=== PATIENT | female | born 1960 | race Caucasian/White ===

== ENCOUNTER 2016-07-10 00:02 | Inpatient (IN) | payer OTHER ==
[2016-07-11] MEDS ORDERED: Ondansetron INJ* 2 MG/ML VIAL IV PRN
[2016-07-11] MEDS ORDERED: Acetaminophen TAB* 325 MG PO PRN
[2016-07-11] MEDS ORDERED: HYDROmorphone* 1 MG/ML 1 ML SYR IV SLOW PU PRN (00:02)
[2016-07-11] MEDS: NS 0.9% 1000 ML* 1,000 ML IV SCH ×3 (00:45→21:16)
[2016-07-11 01:12] LABS: Hematocrit 40 % (35-47); Hemoglobin 13.2 g/dl (12.0-16.0); Mean Corpuscular HGB Conc 34 g/dl (31-36); Mean Corpuscular Hemoglobin 30 pg (27-31); Mean Corpuscular Volume 91 fL (80-97); Mean Platelet Volume 8 um3 (7.4-10.4); Red Blood Count 4.36 10^6/ul (4.0-5.4); Red Cell Distribution Width 13 % (10.5-15); White Blood Count 5.8 10^3/ul (3.5-10.8)
[2016-07-11 01:28] LABS: EGFR African American 76.7 (>60); EGFR Non-African American 59.6 (>60)
[2016-07-11] MEDS: Zolpidem TAB* 10 MG PO PRN (02:26)
[2016-07-11 02:42] LABS: Albumin 4.2 g/dL (3.2-5.2); Calcium 9.2 mg/dL (8.6-10.3); Globulin 3.1 g/dL (2-4); Potassium 3.7 mmol/L (3.5-5.0); Total Bilirubin 0.6 mg/dL (0.2-1.0); Total Protein 7.3 g/dL (6.4-8.9)
[2016-07-11] MEDS: Heparin VIAL(*) 5000 UNITS/ML VIAL (FIVE THOUSAND) SUBCUT SCH ×3 (06:24→21:47)
--- NOTE | 2016-07-11 08:10 | RAD ---
INDICATION: Small bowel obstruction. COMPARISON: Comparison is made with a prior KUB series from January 18, 2016. TECHNIQUE: Frontal supine films of the abdomen were obtained. FINDINGS: The small bowel and colon appear nondistended. Note is made of debris within diverticuli within the colon. There are couple surgical clips which project over the abdomen on the right side. IMPRESSION: NO EVIDENCE FOR OBSTRUCTION.
[2016-07-11] MEDS: Pantoprazole IV* 40 MG IV SCH (08:18)
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
--- NOTE | 2016-07-11 12:59 | RAD ---
HISTORY: Right upper quadrant pain COMPARISONS: May 03, 2008 TECHNIQUE: Multiple transverse and longitudinal ultrasound images were obtained of the right upper quadrant of the abdomen using grayscale and color Doppler imaging. FINDINGS: LIVER: There is a simple cyst of left lobe of liver measuring 0.6 cm in size. There is normal hepatopedal flow of the portal vein on Doppler imaging. BILIARY TREE: There is no intrahepatic or extrahepatic biliary dilatation. The common duct measures 0.4 cm. GALLBLADDER: There are multiple echogenic and shadowing lesions consistent with gallbladder wall polyps. These measure up to 0.3 cm in size. These are stable from the previous examination. There is no sonographic Tran's sign, gallbladder thickening, or pericholecystic fluid. PANCREAS: The head of the pancreas is unremarkable. The tail of the pancreas is not well visualized secondary to overlying bowel gas. RIGHT KIDNEY: The right kidney is normal in shape, size, contour, and echogenicity. There is no hydronephrosis or nephrolithiasis. The right kidney measures 9.4 x 3.1 x 3.8 cm. AORTA AND IVC: The aorta and IVC are unremarkable. FLUID: There are no pleural effusions. There is no free fluid within the hepatorenal recess. OTHER FINDINGS: None. IMPRESSION: 1. STABLE GALLBLADDER WALL POLYPS. 2. NO ACUTE SONOGRAPHIC PATHOLOGY OF THE VISUALIZED PORTION OF THE ABDOMEN
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
[2016-07-12] MEDS: Zolpidem TAB* 10 MG PO PRN ×2 (00:26→21:58)
[2016-07-12] MEDS: Heparin VIAL(*) 5000 UNITS/ML VIAL (FIVE THOUSAND) SUBCUT SCH ×3 (06:01→21:59)
[2016-07-12] MEDS: NS 0.9% 1000 ML* 1,000 ML IV SCH (06:19)
[2016-07-12] MEDS: Pantoprazole IV* 40 MG IV SCH (09:35)
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
[2016-07-13 05:57] LABS: BUN/Creatinine Ratio 8.3 (8-20); EGFR African American 90.5 (>60); EGFR Non-African American 70.4 (>60); Potassium 3.4 mmol/L (3.5-5.0)
[2016-07-13] MEDS: Heparin VIAL(*) 5000 UNITS/ML VIAL (FIVE THOUSAND) SUBCUT SCH ×2 (06:18→14:42)
[2016-07-13] MEDS: Pantoprazole IV* 40 MG IV SCH (08:22)
[2016-07-13] MEDS ORDERED: NS 0.9% w/ 40 Meq KCL 1000 ML* 1,000 ML IV SCH (14:00)
--- NOTE | 2016-07-13 15:33 | RAD ---
Indication: Partial small bowel obstruction for follow-up. Flat and upright views of the abdomen demonstrates no free air. Bowel gas pattern is otherwise unremarkable. When compared to previous exam of July 11, 2016 no significant change is noted. IMPRESSION: Bowel gas pattern is unremarkable. No definite evidence of small bowel obstruction is noted.
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
[2016-07-13 20:03] VITALS: BP 143/83
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
== END 2016-07-13 21:10 | disposition short-term general hospital (02) | DRG 247 ==
LOC: SSU 00:02 → OBSVTOIN 07-11 00:02
PROVIDERS: ADMIT Internal Medicine; ATTEND Internal Medicine
DX: K56.60 Unspecified intestinal obstruction (principal); K21.9 Gastro-esophageal reflux disease without esophagitis; G47.00 Insomnia, unspecified; K82.4 Cholesterolosis of gallbladder; Z91.048 Other nonmedicinal substance allergy status; Z88.4 Allergy status to anesthetic agent
CPT/HCPCS: 36415; 74000; 76705; 80048; 80053; 85025; 85610; 85730; A9270-GY; J1170; J1644; J2405

== ENCOUNTER 2016-08-02 23:56 | Observation (INO) | payer OTHER ==
[2016-08-03] MEDS ORDERED: Ondansetron INJ* 2 MG/ML VIAL IV PRN (00:04)
[2016-08-03] MEDS ORDERED: HYDROmorphone* 1 MG/ML 1 ML SYR IV SLOW PU PRN (00:05)
[2016-08-03] MEDS: NS 0.9% 1000 ML* 1,000 ML IV SCH ×3 (00:20→17:26)
[2016-08-03 01:06] LABS: Hematocrit 36 % (35-47); Hemoglobin 12.2 g/dl (12.0-16.0); Mean Corpuscular HGB Conc 34 g/dl (31-36); Mean Corpuscular Hemoglobin 30 pg (27-31); Mean Corpuscular Volume 89 fL (80-97); Mean Platelet Volume 7 um3 (7.4-10.4); Red Blood Count 4.03 10^6/ul (4.0-5.4); Red Cell Distribution Width 14 % (10.5-15); White Blood Count 14.7 10^3/ul (3.5-10.8)
[2016-08-03 01:28] LABS: BUN/Creatinine Ratio 22.9 (8-20); Calcium 9.4 mg/dL (8.6-10.3); EGFR African American 111.7 (>60); EGFR Non-African American 86.9 (>60); Globulin 3.5 g/dL (2-4); Potassium 3.8 mmol/L (3.5-5.0); Total Bilirubin 0.4 mg/dL (0.2-1.0); Total Protein 7.5 g/dL (6.4-8.9)
[2016-08-03] MEDS: Heparin VIAL(*) 5000 UNITS/ML VIAL (FIVE THOUSAND) SUBCUT SCH ×3 (05:23→21:36)
--- NOTE | 2016-08-03 07:24 | RAD ---
INDICATION: Small bowel obstruction. COMPARISON: Comparison is made with a prior study from July 13, 2016. TECHNIQUE: Supine and upright views of the abdomen were obtained. FINDINGS: There is a paucity of bowel gas limiting the study. The small bowel and colon appear nondistended. There is a small air-fluid level within the stomach. No significant air-fluid levels are noted within the small bowel or colon. No free intraperitoneal air is seen. There is a surgical clip which projects in the right lower quadrant. IMPRESSION: NO EVIDENCE FOR OBSTRUCTION.
[2016-08-03] MEDS ORDERED: Omeprazole CAP* 20 MG PO SCH ×2 (07:30→21:00)
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
[2016-08-03] MEDS ORDERED: Melatonin (NF) ** ENTER STRENGTH IN LABEL DIRECTIONS PO PRN (16:48)
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
[2016-08-03] MEDS ORDERED: Zolpidem TAB* 10 MG PO PRN (17:22)
[2016-08-03] MEDS ORDERED: NS 0.9% 1000 ML* 1,000 ML IV SCH (17:30)
[2016-08-04] MEDS: Heparin VIAL(*) 5000 UNITS/ML VIAL (FIVE THOUSAND) SUBCUT SCH ×2 (06:02→14:00)
[2016-08-04 06:19] LABS: Hematocrit 32 % (35-47); Hemoglobin 11.1 g/dl (12.0-16.0); Mean Corpuscular HGB Conc 35 g/dl (31-36); Mean Corpuscular Hemoglobin 31 pg (27-31); Mean Corpuscular Volume 89 fL (80-97); Mean Platelet Volume 7 um3 (7.4-10.4); Red Blood Count 3.59 10^6/ul (4.0-5.4); Red Cell Distribution Width 14 % (10.5-15); White Blood Count 6.5 10^3/ul (3.5-10.8)
[2016-08-04] MEDS ORDERED: Lactulose* 15 ML UDC ONE (09:45)
[2016-08-04 11:57] VITALS: BP 126/82
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
== END 2016-08-04 14:05 | disposition home or self-care (01) ==
LOC: UNDOADMOB 23:56 → SSU 23:56 → OBSVTOIN 08-03 00:05 → INTOOBSV 08-03 00:05
PROVIDERS: ADMIT Internal Medicine; ATTEND Internal Medicine
DX: K56.60 Unspecified intestinal obstruction (principal); K21.9 Gastro-esophageal reflux disease without esophagitis; G47.00 Insomnia, unspecified; Z98.890 Other specified postprocedural states; Z88.8 Allergy status to other drugs, medicaments and biological substances; Z79.899 Other long term (current) drug therapy
CPT/HCPCS: 36415; 74020; 80053; 85025; 85610; 85730; 96361; 96372; 96374; 96375; A9270-GY; G0378; J1170; J1642; J1644; J2405

== ENCOUNTER 2017-01-03 17:12 | Emergency (ER) | payer BC, OTHER ==
[2017-01-03] MEDS ORDERED: Vancomycin(*) 1,000 MG in NS 0.9% 250 ML* 250 ML IVPB ONE (17:46)
[2017-01-03] MEDS ORDERED: Lidocaine 2% EPI 1:200000 MPF* 20 ML VIAL ONE (17:48)
[2017-01-03] MEDS ORDERED: Tetan/Diph/Pertus SYR(Tdap)* 0.5 ML SYR(BOOSTRIX) use SYR IM ONE (18:08)
[2017-01-03 18:13] LABS: Hematocrit 39 % (35-47); Hemoglobin 13.5 g/dl (12.0-16.0); Mean Corpuscular HGB Conc 34 g/dl (31-36); Mean Corpuscular Hemoglobin 30 pg (27-31); Mean Corpuscular Volume 86 fL (80-97); Mean Platelet Volume 8 um3 (7.4-10.4); Red Blood Count 4.56 10^6/ul (4.0-5.4); Red Cell Distribution Width 15 % (10.5-15)
[2017-01-03 18:31] LABS: Albumin 4.2 g/dL (3.2-5.2); BUN/Creatinine Ratio 18.1 (8-20); Calcium 9.2 mg/dL (8.6-10.3); EGFR African American 79.5 (>60); EGFR Non-African American 61.8 (>60); Globulin 3.3 g/dL (2-4); Potassium 3.5 mmol/L (3.5-5.0); Total Bilirubin 0.4 mg/dL (0.2-1.0); Total Protein 7.5 g/dL (6.4-8.9)
[2017-01-03 19:02] LABS: Erythrocyte Sed Rate 34 mm/Hr (0-30)
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
[2017-01-03] MEDS ORDERED: Amoxicillin/Clavulanate TAB* 875 MG PO ONE (19:31)
[2017-01-03 19:45] LABS: Urine Bacteria Absent (Absent); Urine Bilirubin Negative (Negative); Urine Glucose Negative (Negative); Urine Nitrite Negative (Negative)
[2017-01-03 21:02] VITALS: BP 131/87
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
== END 2017-01-03 20:25 | disposition home or self-care (01) ==
LOC: ED 17:12
DX: S61.431A Puncture wound without foreign body of right hand, initial encounter (principal); L08.9 Local infection of the skin and subcutaneous tissue, unspecified; W55.01XA Bitten by cat, initial encounter; Y93.9 Activity, unspecified; Y92.9 Unspecified place or not applicable; Z23 Encounter for immunization; N39.0 Urinary tract infection, site not specified; K57.90 Diverticulosis of intestine, part unspecified, without perforation or abscess without bleeding; K21.9 Gastro-esophageal reflux disease without esophagitis; K58.9 Irritable bowel syndrome, unspecified
CPT/HCPCS: 36415; 80053; 81003; 81015; 83605; 85025; 85652; 86141; 87086; 90471; 90715; 96365; 99282; A9270-GY; J3370

== ENCOUNTER 2019-03-16 20:29 | Emergency (ER) | payer BC ==
--- OUTSIDE RECORDS SUMMARY | 2019-03-16 20:44 | XMS REPORT | Continuity of Care Document ---
:1960 External Reference #:[id number] Author Name Jade Beaulieu NP Address [address] [facility] Unavailable [place] [id number] Care Team Providers Name Role Phone Marianna Aiden - Urology Care Team Information Search Lead [phone] [facility] Utilization Visualizer Care Team Information Search Lead - Health Educator [facility] - Diagnostic Care Team Information Search Lead Radiology Bernadine Ramirez M.D. - Family Medicine Care Team Information Search Lead Unavailable Problems Active Problems Provider Date Neck pain Jose Lerma M.D. Onset: 09/20/2007 Allergic rhinitis Jose Lerma M.D. Onset: 09/20/2007 Diverticular disease of colon Ashlyn Santiago M.D. Onset: 04/03/2011 Partial obstruction of small bowel Bernadine Ramirez M.D. Onset: 12/12/2015 Social History Type Date Description Comments Sex Unknown Tobacco Use Start: Unknown Never Smoked Cigarettes ETOH Use Denies alcohol use Tobacco Use Start: Unknown Patient has never smoked Smoking Status Reviewed: 01/31/19 Patient has never smoked Allergies, Adverse Reactions, Alerts Description No Known Drug Allergies Medications Active Medications SIG Qnty Indications Ordering Date Provider Shingrix one injection now, 1units Z23 Jade Rucker 01/31/2019 50mcg/0.5ML repeat in 2-6 JONI Beaulieu Suspension Rec months Misoprostol 1 by mouth four 360tabs Jose Lerma, 02/23/2017 200mcg times a day as M.D. Tablets directed Lunesta 1 by mouth every 30tabs Andrade Altman 02/05/2015 3mg Tablets night at bedtime MD Alix as needed ginny Nexium 1 by mouth every 90caps K21.9 Jose Lerma, 10/31/[address]aps[address] day M.D. DR Allergy 24-HR Unknown 180mg Tablets Melatonin 1 at at bedtime as Unknown 5mg needed Capsules History Medications Benzonatate 1 tab q6 hours as 30caps R05 Bernadine Ramirez, 12/20/2018 - 200mg needed cough M.D. 01/31/2019 Capsules Azithromycin 2 by mouth today 6tabs Jose Lerma, 12/19/2018 - 250mg then 1 by mouth M.D. 01/31/2019 Tablets every day x 4 days Triamcinolone apply to affected 45gm Jose Lerma, 10/09/2018 - Acetonide area every day M.D. 01/31/2019 0.025% Cream once a day for up to 4 weeks as directed Medications Administered in Office Medication SIG Qnty Indications Ordering Provider Date TB Intradermal Test Jose Balderrama M.D. 01/15/2004 [facility] Intramuscular Injection Immunizations CPT Code Status Date Vaccine Lot # [id number] Given 12/10/2018 Influenza Virus Vaccine, Recombinant Dna, [id number] [place] [address] Given 12/12/2017 Influenza Virus Vaccine, Recombinant Dna, [id number] [place] [address] Given 12/13/2016 Influenza Vac, Quadrivalent, Slit Virus, Im [id number] 59023 Given 12/15/2015 Influenza Vac, Quadriv[place], [place] [address] Given 12/14/2014 Influenza Vac, Quadrivalent, Slit Virus, Im [id number] 37135 Given 12/19/2013 Influenza Vac, Quadrivalent, Slit Virus, Im [id number] 22990 Given 12/21/2012 DO Not Use Split Influenza Virus Vaccine [id number] 12590 Given 12/13/2011 DO Not Use Split Influenza Virus Vaccine [id number] 60818 Given 12/12/2010 DO Not Use Split Influenza Virus Vaccine [id number] 23879 Given 06/13/2010 Tdap Tetanus, W Pertussis [id number] 55182 Given 12/08/2009 DO Not Use Split Influenza Virus Vaccine [id number] 61385 Given 02/03/2009 H1N1 Immunization Intramuscular/Intranasal W Counseling 40730 Given 02/03/2009 H1N1 Virus Vaccine [id number] 78969 Given 12/04/2008 DO Not Use Split Influenza Virus Vaccine 75372 Given 12/04/2008 DO Not Use Split Influenza Virus Vaccine [id number] 52953 Given 01/22/2008 DO Not Use Split Influenza Virus Vaccine [id number] 62894 Given 12/28/2006 DO Not Use Split Influenza Virus Vaccine [id number] 98770 Given 01/19/2006 DO Not Use Split Influenza Virus Vaccine [id number] 42586 Given 01/20/2005 DO Not Use Split Influenza Virus Vaccine 66918 Given 01/31/2004 DO Not Use Split Influenza Virus Vaccine 95708 Given 01/15/2004 Td Immunization, For Use In Individuals 7 Years Or Older 26316 Given 01/12/2003 DO Not Use Split Influenza Virus Vaccine 85864 Given 12/27/2001 Influenza Immunization Vital Signs Date Vital Result Comment 01/31/2019 8:42am BP Systolic 112 mmHg BP Diastolic 70 mmHg Heart Rate 78 /min Body Temperature 98.1 F Respiratory Rate 16 /min Height 61 inches 5'1" Weight 155.00 lb BMI (Body Mass Index) 29.3 kg/m2 08/20/2016 11:32am BP Systolic 118 mmHg BP Diastolic 78 mmHg Heart Rate 68 /min Body Temperature 97.9 F Respiratory Rate 16 /min Weight 145.00 lb Results Test Date Facility Test Result H/L Range Note Laboratory test 01/31/2019 [facility] Cytology Thinprep <pending> finding w/rfx([facility] [place]) Procedures Date Code Description Status 03/18/2018 [id number] Mammogram Completed 01/18/2016 [id number] Mammogram Completed 05/29/2015 [id number] Mammogram Completed 11/16/2014 [id number] Mammogram Completed 03/23/2014 [id number] Colonoscopy Completed 11/11/2013 [id number] Mammogram Completed 05/10/2012 [id number] Mammogram Completed 04/07/2011 [id number] Mammogram Completed 09/14/2009 [id number] Mammogram Completed 01/04/2008 [id number] Mammogram Completed 2006 [id number] Mammogram Completed Medical Devices Description No Information Available Encounters Description No Information Available Assessments Date Code Description Provider 01/31/2019 Z12.4 Encounter for screening for malignant Jade Beaulieu NP neoplasm of cervix 01/31/2019 Z12.31 Encounter for screening mammogram for Jade Beaulieu NP malignant neoplasm of breast 01/31/2019 Z23 Encounter for immunization Jade Beaulieu NP 12/20/2018 R05 Cough Bernadine Ramirez M.D. 12/10/2018 Z23 Encounter for immunization Bernadine Ramirez M.D. Plan of Treatment 01/31/2019 - Jade Beaulieu, NPZ12.4 Encounter for screening for malignant neoplasm of cervixComments:I performed a pap smear, I will call you with abnormal results or send you a letter with normal results. if you would like I think that Lucila Perkins PT would help a lot with the incontinence, let me know and I will set that up for youZ12.31 Encounter for screening mammogram for malignant neoplasm of breastNew Xrays:Mammography Screening, Bilateral; 2-View Each Breast, Ordered: 01/31/19Comments:A mammogram has been ordered. Due 2018Z23 Encounter for immunizationNew Medication:Shingrix 50 mcg/0.5ML - one injection now, repeat in 2-6 monthsAllComments:Medication Management Patient Understands medications he 's taking? Yes No Are there Barriers to Adherence? Yes No Has the patient been asked about herbal supplements and therapies, andOTC meds? Yes No Care Plan1. Patient has been queried about patient's goals/preferences and functional/lifestyle goals at relevant visits. If relevant, describe: na2. Treatment goals as explained to the patient: above3. Are there barriers to meeting treatment goals? Yes No If Yes, please describe:4. Self-Management goals as described to the patient: Yes NoAs always, we strongly encourage a healthy diet and making physical activity a part of your every day life. If you have questions about how or where to start, please contact the office.Follow up:Please schedule a full annual visit at your earliest convenience Last appointment with : Chela contact front office staff to set up the online patient portal Functional Status Description No Information Available Mental Status Description No Information Available Referrals Description No Information Available
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
[2019-03-16 23:16] VITALS: BP 116/76
== END 2019-03-16 23:14 | disposition home or self-care (01) ==
LOC: ED 20:29
DX: M79.662 Pain in left lower leg (principal); Z88.5 Allergy status to narcotic agent; K21.9 Gastro-esophageal reflux disease without esophagitis; Z90.89 Acquired absence of other organs
CPT/HCPCS: 99282

== ENCOUNTER 2020-05-08 18:51 | Inpatient (IN) ==
[2020-05-08] MEDS ORDERED: HYDROmorphone 1 MG/1 ML SYRINGE IV SLOW PU ONE (20:42)
[2020-05-08 20:47] LABS: ABS Basophils 0.1 10^3/ul (0-0.2); ABS Eosinophils 0.1 10^3/ul (0-0.6); ABS Monocytes 0.4 10^3/ul (0-0.8); ABS Neutrophils 4.6 10^3/ul (1.5-7.7); Hematocrit 38 % (35-47); Hemoglobin 13.1 g/dL (12.0-16.0); Mean Corpuscular HGB Conc 35 g/dL (31-36); Mean Corpuscular Hemoglobin 32 pg (27-31); Mean Corpuscular Volume 92 fL (80-97); Mean Platelet Volume 7.3 fL (7.4-10.4); Platelet Count 276 10^3/uL (150-450); Red Blood Count 4.15 10^6 /uL (3.70-4.87); Red Cell Distribution Width 13 % (10-15); White Blood Count 7.1 10^3/uL (3.5-10.8)
[2020-05-08 21:03] LABS: Albumin 4.1 g/dL (3.2-5.2); Albumin/Globulin Ratio 1.4 (1-3); Calcium 8.9 mg/dL (8.6-10.3); EGFR African American 60.9 (>60); EGFR Non-African American 50.3 (>60); Potassium 3.9 mmol/L (3.5-5.0); Total Bilirubin 0.5 mg/dL (0.2-1.0); Total Protein 7.1 g/dL (6.4-8.9)
[2020-05-08 21:31] LABS: Magnesium 1.8 mg/dL (1.9-2.7)
[2020-05-08] MEDS: Ondansetron 4 mg VIAL 2 MG/ML 2 ml VIAL IV PRN (22:21)
[2020-05-08] MEDS: NS 0.9% 1000 ml BAG 1,000 ML IV SCH (22:25)
[2020-05-08] MEDS: Heparin 5000 UNITS/ML 1 mL VIAL SUBCUT SCH (22:43)
[2020-05-09] MEDS ORDERED: Magnesium Sulfate 2 gm BAG 2 GM/50 ML BAG IVPB ONE (04:41)
[2020-05-09] MEDS: NS 0.9% 1000 ml BAG 1,000 ML IV SCH ×2 (05:37→23:59)
[2020-05-09 06:07] LABS: ABS Eosinophils 0.1 10^3/ul (0-0.6); ABS Lymphocytes 2.1 10^3/ul (1.0-4.8); ABS Monocytes 0.4 10^3/ul (0-0.8); ABS Neutrophils 3.4 10^3/ul (1.5-7.7); Eosinophil % 0.9 %; Hematocrit 38 % (35-47); Hemoglobin 13.3 g/dL (12.0-16.0); Lymphocyte % 34.7 %; Mean Corpuscular HGB Conc 35 g/dL (31-36); Mean Corpuscular Hemoglobin 32 pg (27-31); Mean Corpuscular Volume 92 fL (80-97); Mean Platelet Volume 7.1 fL (7.4-10.4); Platelet Count 263 10^3/uL (150-450); Red Blood Count 4.16 10^6 /uL (3.70-4.87); Red Cell Distribution Width 13 % (10-15); White Blood Count 5.9 10^3/uL (3.5-10.8)
[2020-05-09 06:24] LABS: Albumin 3.8 g/dL (3.2-5.2); Albumin/Globulin Ratio 1.3 (1-3); BUN/Creatinine Ratio 14.9 (8-20); Calcium 8.8 mg/dL (8.6-10.3); EGFR African American 73.7 (>60); Potassium 4.3 mmol/L (3.5-5.0); Total Bilirubin 0.6 mg/dL (0.2-1.0); Total Protein 6.8 g/dL (6.4-8.9)
[2020-05-09] MEDS: Heparin 5000 UNITS/ML 1 mL VIAL SUBCUT SCH ×2 (08:37→20:51)
[2020-05-09] MEDS: Pantoprazole VIAL 40 MG VIAL IV SCH (08:37)
[2020-05-09] MEDS: Fluticasone NASAL SPRAY 50MCG 16 gm SPRAY BTL INTRANASAL SCH (10:09)
[2020-05-09] MEDS ORDERED: Gadoteridol (CONTRAST) 279.3 MG/ML 10 ML IV ONE (13:07)
[2020-05-09] MEDS: Ondansetron 4 mg VIAL 2 MG/ML 2 ml VIAL IV PRN (13:16)
[2020-05-09] MEDS ORDERED: HYDROmorphone 1 MG/1 ML SYRINGE IV SLOW PU ONE (13:19)
[2020-05-09] MEDS ORDERED: Prochlorperazine 5 mg/ml 2 ml VIAL (10 mg) IV PRN (16:09)
[2020-05-10] MEDS: Fluticasone NASAL SPRAY 50MCG 16 gm SPRAY BTL INTRANASAL SCH (08:13)
[2020-05-10] MEDS: Heparin 5000 UNITS/ML 1 mL VIAL SUBCUT SCH ×2 (08:13→21:41)
[2020-05-10] MEDS: Pantoprazole VIAL 40 MG VIAL IV SCH (08:13)
[2020-05-10] MEDS: NS 0.9% 1000 ml BAG 1,000 ML IV SCH ×2 (08:14→18:27)
[2020-05-11] MEDS: NS 0.9% 1000 ml BAG 1,000 ML IV SCH (05:28)
[2020-05-11] MEDS: Fluticasone NASAL SPRAY 50MCG 16 gm SPRAY BTL INTRANASAL SCH (07:58)
[2020-05-11] MEDS: Heparin 5000 UNITS/ML 1 mL VIAL SUBCUT SCH (07:58)
[2020-05-11 12:03] VITALS: BP 138/83
== END 2020-05-11 15:50 | disposition home or self-care (01) | DRG 247 ==
LOC: SSU → OBSVTOIN 19:13 → AA 19:16 → MED 19:22
PROVIDERS: ADMIT Internal Medicine; ATTEND Internal Medicine